=== PATIENT | female | born 1970 | race Caucasian/White ===

== ENCOUNTER → 2018-06-14 | Outpatient (CLI) | payer OTHER | LOC: M.ULTRA 07:11 | DX: M54.6 Pain in thoracic spine (principal); R10.9 Unspecified abdominal pain ==

== ENCOUNTER → 2018-11-09 | Outpatient (CLI) | payer OTHER | LOC: M.ULTRA 13:01 | DX: I83.92 Asymptomatic varicose veins of left lower extremity (principal); Z86.718 Personal history of other venous thrombosis and embolism; Z79.01 Long term (current) use of anticoagulants ==

== ENCOUNTER → 2019-06-17 | Outpatient (CLI) | payer OTHER | LOC: M.RAD 15:44 | DX: M79.672 Pain in left foot (principal) ==

== ENCOUNTER → 2020-12-13 | Outpatient (CLI) | payer OTHER | LOC: M.RAD 11:10 | PROVIDERS: ATTEND Registered Nurse Diabetes Educator | DX: Z12.31 Encounter for screening mammogram for malignant neoplasm of breast (principal) ==